=== PATIENT | male | born 2000 | race Hispanic/Latino ===

== ENCOUNTER 2021-05-31 05:28 | Emergency (ER) | payer BC ==
[2021-05-31] MEDS ORDERED: NA CHLORIDE 0.9% 1,000 ML ONE (06:25)
[2021-05-31] MEDS ORDERED: KETOROLAC 30 MG/ML INJ ONE (06:25)
[2021-05-31] MEDS ORDERED: ONDANSETRON 4 MG/2 ML VIAL ONE (06:25)
[2021-05-31 06:53] LABS: Absolute Lymphocytes (CBC) 2.1 K/uL (0.7-4.9); Basophils % 0.6 % (0-1.3); Hematocrit 44.7 % (39.6-49.0); MPV 9.3 fL (7.6-11.3); RBC Red Blood Cell Count 5.06 M/uL (4.33-5.43)
[2021-05-31 07:05] LABS: ALT/SGPT 84 U/L (12-78); AST/SGOT 30 U/L (15-37); Albumin 4.2 g/dL (3.4-5.0); Alkaline Phosphatase 122 U/L (45-117); BUN Blood Urea Nitrogen 14 mg/dL (7-18); Bicarbonate 27 mmol/L (21-32); Bilirubin Direct 0.1 mg/dL (0-0.2); Bilirubin Total 0.5 mg/dL (0.2-1.0); Glucose Level 101 mg/dL (74-106); Lipase 144 U/L (73-393); Potassium 3.9 mmol/L (3.5-5.1); Protein, Total 7.9 g/dL (6.4-8.2); Sodium Level 141 mmol/L (136-145)
--- NOTE | 2021-05-31 07:27 | RAD REPORT ---
EXAM DESCRIPTION: CT - Stone Protocol - 05/31/2021 6:19 am CLINICAL HISTORY: ABD PAIN, left-sided COMPARISON: No comparisons TECHNIQUE: Axial 3 mm thick images were obtained without oral or IV contrast. The [id number] span s the entirety of the system including uppermost abdomen and lung bases. All CT scans are performed using dose optimization technique as appropriate and may include automated exposure control or mA/KV adjustment according to patient size. FINDINGS: Mild left-sided hydronephrosis present secondary to a 3 mm distal left ureteral calculus t he UVJ. No other obstructing or nonobstructing calculi. No suspicious renal masses. Isodense masses a nd pyelonephritis are not excluded on a stone protocol CT scan. No significant adrenal finding. No ur inary bladder suspicious finding. Imaged portions of the liver, spleen and pancreas show no suspicious findings on non-contrast imaging . No gallbladder or biliary tree abnormality identified. No suspicious bowel findings. Appendix is normal. No hernia, mass or bulky lymphadenopathy noted. A few small nonspecific central and right lower quadr ant mesenteric lymph nodes present. No free air, free fluid or inflammatory stranding. No significant bony abnormality. IMPRESSION: Mild left-sided hydronephrosis secondary to 3 mm distal left ureteral calculus at the UV J. Isodense masses and pyelonephritis are not excluded on stone protocol technique. No acute GI findings seen. The appendix is normal. Small mesenteric lymph nodes are present, nonspeci fic.
--- NOTE | 2021-05-31 07:55 | ER ---
Nurse's Notes [facility] Name: Jorge Luis Murdock Age: 20 yrs Sex: Male : 2000 Arrival Date: 05/31/2021 Time: 05:30 Bed 8 Private MD: Diagnosis: Calculus of kidney with calculus of ureter Presentation: 05/31 05:39 Chief complaint: Patient states: left sided abdomen/rib pain that started this morning em at 0200, denies trauma, reports N/V denies diarrhea or fever. Coronavirus screen: Client denies travel out of the [place] in the last 14 days. Ebola Screen: Patient negative for fever greater than or equal to 101.5 degrees Fahrenheit, and additional compatible Ebola Virus Disease symptoms Patient denies exposure to infectious person. Patient denies travel to an Ebola-affected area in the 21 days before illness onset. No symptoms or risks identified at this time. Initial Sepsis Screen: Does the patient meet any 2 criteria? HR > 90 bpm. No. Patient's initial sepsis screen is negative. Does the patient have a suspected source of infection? Yes:. Risk Assessment: Do you want to hurt yourself or someone else? Patient reports no desire to harm self or others. Onset of symptoms was May 31, 2021. 05:39 Method Of Arrival: Ambulatory em 05:39 Acuity: ELINA 3 em Historical: - Allergies: 05:41 PENICILLINS; em - PMHx: 05:41 None; em - PSHx: 05:41 Appendectomy; em - Immunization history:: Client reports receiving the 2nd dose of the Covid vaccine. - Social history:: Smoking status: Patient reports the use of cigarette tobacco products, denies chronic smoking, but will smoke occasionally. Screenin:55 Abuse screen: Denies threats or abuse. Nutritional screening: No deficits noted. jb4 Tuberculosis screening: No symptoms or risk factors identified. Fall Risk None identified. Assessment: 05:55 General: Appears in no apparent distress. uncomfortable, Behavior is calm, cooperative, jb4 appropriate for age. Pain: Complains of pain in left lower quadrant Pain radiates to left low back and anterior aspect of left lateral abdomen Pain currently is 10 out of 10 on a pain scale. Quality of pain is described as stabbing. Neuro: Level of Consciousness is awake, alert, obeys commands, Oriented to person, place, time, situation. Cardiovascular: Patient's skin is warm and dry. Respiratory: Airway is patent Respiratory effort is even, unlabored, Respiratory pattern is regular, symmetrical. GI: No signs and/or symptoms were reported involving the gastrointestinal system. : No signs and/or symptoms were reported regarding the genitourinary system. EENT: No signs and/or symptoms were reported regarding the EENT system. Derm: Skin is intact, Skin is pink, warm \T\ dry. Musculoskeletal: Circulation, motion, and sensation intact. Range of motion: intact in all extremities. 07:00 Reassessment: Patient appears in no apparent distress at this time. Patient and/or jb4 family updated on plan of care and expected duration. Pain level reassessed. Patient is alert, oriented x 3, equal unlabored respirations, skin warm/dry/pink. Vital Signs: 05:39 BP 136 / 67; Pulse 91; Resp 18; Temp 97.2; Pulse Ox 99% on R/A; Weight 99.79 kg; Height em 5 ft. 10 in. (177.80 cm); Pain 10/10; 07:15 BP 121 / 85; Pulse 57; Resp 16; Pulse Ox 100% on R/A; jb4 08:21 BP 130 / 78; Pulse 71; Resp 17; Pulse Ox 98% on R/A; ap3 05:39 Body Mass Index 31.57 (99.79 kg, 177.80 cm) em ED Course: 05:30 Patient arrived in ED. wm 05:41 Triage completed. em 05:41 Arm band placed on. em 05:49 Cely Barrientos FNP-C is [facility]. kb 05:49 Niya Mohr is Attending Physician. kb 05:55 Patient has correct armband on for positive identification. Bed in low position. Call jb4 light in reach. Side rails up X 1. Pulse ox on. NIBP on. 05:55 Initial lab(s) drawn, by me, sent to lab. Inserted saline lock: 18 gauge in right jb4 antecubital area, using aseptic technique. Blood collected. 05:59 Ben Singh, FORTINO is Primary Nurse. jb4 06:19 CT Stone Protocol In Process Unspecified. EDMS 08:20 No provider procedures requiring assistance completed. IV discontinued, intact, ap3 bleeding controlled, No redness/swelling at site. Pressure dressing applied. Administered Medications: 06:13 Drug: Zofran (Ondansetron) 4 mg Route: IVP; Site: right antecubital; jb4 06:49 Follow up: Response: No adverse reaction jb4 06:13 Drug: Ketorolac 30 mg Route: IVP; Site: right antecubital; jb4 06:49 Follow up: Response: No adverse reaction; Pain is decreased jb4 06:30 Drug: NS 0.9% 1000 ml Route: IV; Rate: 1000 ml; Site: right antecubital; jb4 07:49 Drug: Flomax (tamsulosin) 0.4 mg Route: PO; ap3 08:19 Follow up: Response: No adverse reaction ap3 07:49 Drug: morphine 4 mg Route: IVP; Site: right antecubital; ap3 08:19 Follow up: Response: No adverse reaction ap3 08:20 Not Given (patient dischargee): Magnesium Sulfate 1 grams IVPB once over 30 mins ap3 Outcome: 07:54 Discharge ordered by . filipe 08:20 Discharged to home ambulatory. ap3 08:20 Condition: good 08:20 Discharge instructions given to patient, Instructed on discharge instructions, Demonstrated understanding of instructions, follow-up care, medications, Prescriptions given X 3. 08:21 Patient left the ED. ap3 Signatures: Dispatcher [employer] Cely Aguila, VINOD NEGRO-Bryn Nunes RN RN em Bryson, James, RN RN jb4 Ioana Mecrado RN RN ap3 Cassidy Bell
--- NOTE | 2021-05-31 07:55 | EDPHYS ---
Physician Documentation [facility] Name: Jorge Luis Murdock Age: 20 yrs Sex: Male : 2000 Arrival Date: 05/31/2021 Time: 05:30 Bed 8 Private MD: ED Physician Niya Mohr HPI: 05/31 06:07 This 20 yrs old Male presents to ER via Ambulatory with complaints of LEFT kb SIDE OF RIBS IN PAIN. 06:07 The patient presents with abdominal pain in the left upper quadrant, in the left lower kb quadrant. Onset: The symptoms/episode began/occurred this morning, at 02:00. The symptoms do not radiate. Associated signs and symptoms: Pertinent positives: nausea and vomiting, Pertinent negatives: fever. The symptoms are described as constant. Modifying factors: The symptoms are alleviated by nothing, the symptoms are aggravated by nothing. Severity of pain: At its worst the pain was moderate in the emergency department the pain is unchanged. The patient has not experienced similar symptoms in the past. The patient has not recently seen a physician. Pt reports he was awakened by left abd pain. 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 Pt has never had pain like this before. . Historical: - Allergies: 05:41 PENICILLINS; em - PMHx: 05:41 None; em - PSHx: 05:41 Appendectomy; em - Immunization history:: Client reports receiving the 2nd dose of the Covid vaccine. - Social history:: Smoking status: Patient reports the use of cigarette tobacco products, denies chronic smoking, but will smoke occasionally. ROS: 06:07 Constitutional: Negative for fever, chills, and weight loss. kb 06:07 Abdomen/GI: Positive for abdominal pain, nausea and vomiting, Negative for diarrhea, constipation. 06:07 All other systems are negative. 06:09 : Positive for urinary frequency, small amounts. kb Exam: 06:05 Constitutional: This is a well developed, well nourished patient who is awake, alert, kb and in no acute distress. Head/Face: Normocephalic, atraumatic. ENT: Moist Mucous membranes Cardiovascular: Regular rate and rhythm with a normal S1 and S2. No gallops, murmurs, or rubs. No pulse deficits. Respiratory: Respirations even and unlabored. No increased work of breathing, no retractions or nasal flaring. Skin: Warm, dry with normal turgor. Normal color. MS/ Extremity: Pulses equal, no cyanosis. Neurovascular intact. Full, normal range of motion. Neuro: Awake and alert, GCS 15, oriented to person, place, time, and situation. Moves all extremities. Normal gait. Psych: Awake, alert, with orientation to person, place and time. Behavior, mood, and affect are within normal limits. 06:05 Abdomen/GI: Inspection: abdomen appears normal, Bowel sounds: normal, in all quadrants, Palpation: soft, in all quadrants, moderate abdominal tenderness, in the left upper quadrant and left lower quadrant. 06:05 Back: pain, that is mild, of the right low back. Vital Signs: 05:39 BP 136 / 67; Pulse 91; Resp 18; Temp 97.2; Pulse Ox 99% on R/A; Weight 99.79 kg; Height em 5 ft. 10 in. (177.80 cm); Pain 10/10; 07:15 BP 121 / 85; Pulse 57; Resp 16; Pulse Ox 100% on R/A; jb4 08:21 BP 130 / 78; Pulse 71; Resp 17; Pulse Ox 98% on R/A; ap3 05:39 Body Mass Index 31.57 (99.79 kg, 177.80 cm) em MDM: 05:49 Patient medically screened. kb 05:55 Data reviewed: vital signs, nurses notes. Data interpreted: Pulse oximetry: on room air kb is 99 %. Interpretation: normal. 07:30 Counseling: I had a detailed discussion with the patient and/or guardian regarding: the kb historical points, exam findings, and any diagnostic results supporting the discharge/admit diagnosis, lab results, radiology results, the need for outpatient follow up, a urologist, to return to the emergency department if symptoms worsen or persist or if there are any questions or concerns that arise at home. 05/31 05:52 Order name: Basic Metabolic Panel; Complete Time: 07: kb 05/31 05:52 Order name: CBC with Diff; Complete Time: 07: kb 05/31 05:52 Order name: Hepatic Function; Complete Time: 07: kb 05/31 05:52 Order name: Lipase; Complete Time: 07: kb 05/31 05:52 Order name: CT Stone Protocol; Complete Time: 07:28 kb 05/31 05:52 Order name: IV Saline Lock; Complete Time: 05:59 kb 05/31 05:52 Order name: Labs collected and sent; Complete Time: 05:59 kb Administered Medications: 06:13 Drug: Zofran (Ondansetron) 4 mg Route: IVP; Site: right antecubital; jb4 06:49 Follow up: Response: No adverse reaction jb4 06:13 Drug: Ketorolac 30 mg Route: IVP; Site: right antecubital; jb4 06:49 Follow up: Response: No adverse reaction; Pain is decreased jb4 06:30 Drug: NS 0.9% 1000 ml Route: IV; Rate: 1000 ml; Site: right antecubital; jb4 07:49 Drug: Flomax (tamsulosin) 0.4 mg Route: PO; ap3 08:19 Follow up: Response: No adverse reaction ap3 07:49 Drug: morphine 4 mg Route: IVP; Site: right antecubital; ap3 08:19 Follow up: Response: No adverse reaction ap3 08:20 Not Given (patient dischargee): Magnesium Sulfate 1 grams IVPB once over 30 mins ap3 Disposition Summary: 05/31/21 07:54 Discharge Ordered Location: Home kb Condition: Stable kb Diagnosis - Calculus of kidney with calculus of ureter kb Followup: kb - With: Emergency Department - When: As needed - Reason: Worsening of condition Followup: kb - With: Private Physician - When: 2 - 3 days - Reason: Recheck today's complaints, Continuance of care, Re-evaluation by your physician Discharge Instructions: - Discharge Summary Sheet kb - Kidney Stones, [id number] kb Forms: - Medication Reconciliation Form kb - Thank You Letter kb - Antibiotic Education kb - Prescription Opioid Use kb - Work release form eb Prescriptions: - Flomax 0.4 mg Oral capsule - take 1 capsule by ORAL route once daily 1/2 hour following the same meal each kb day; 10 capsule; Refills: 0, Product Selection Permitted - Zofran 4 mg Oral Tablet - take 1 tablet by ORAL route every 6 hours As needed; 20 tablet; Refills: 0, kb Product Selection Permitted - Diclofenac Sodium 75 mg Oral tablet,delayed release (DR/EC) - take 1 tablet by ORAL route 2 times per day As needed; 30 tablet; Refills: 0, kb Product Selection Permitted Addendum: 06/02/2021 09:10 Co-signature as Attending Physician, Niya Mohr I agree with the assessment and plan s p3 of care. Signatures: Dispatcher [employer] Cely Aguila, DISTRIBUTION OPERATION SUPERVISOR-C DISTRIBUTION OPERATION SUPERVISOR-Bryn Nunes, RN RN Ben Ayala RN RN jb4 Ioana Mercado RN RN ap3 Niya Mohr sp3 Corrections: (The following items were deleted from the chart) 05/31 06:06 06:05 Back: CVA tenderness, that is mild, is noted on the left, kb kb 06:09 06:07 Associated signs and symptoms: Pertinent positives: nausea and vomiting, kb Pertinent negatives: fever, kb
[2021-05-31] MEDS ORDERED: MORPHINE 4 MG/ML SYR ONE (08:05)
[2021-05-31] MEDS ORDERED: TAMSULOSIN 0.4 MG SR CAP ONE (08:06)
[2021-05-31 08:28] VITALS: TEMP 97.2
[2021-05-31 08:34] VITALS: BP 130/78; O2SAT 98
== END 2021-05-31 08:21 | disposition home or self-care (01) ==
LOC: ER 05:28
DX: N20.2 Calculus of kidney with calculus of ureter (principal); F17.210 Nicotine dependence, cigarettes, uncomplicated; Z88.0 Allergy status to penicillin
CPT/HCPCS: 85025; 80048; 36415; 80076; 83690; 76377; 74176; 96375; 96374; 99284; J7030; J2405